=== PATIENT | female | born 1975 | race Caucasian/White ===

== ENCOUNTER → 2017-06-09 | Outpatient (CLI) | payer BC ==
--- NOTE | 2017-06-09 14:06 | DIAGNOSTIC IMAGING REPORT ---
CERVICAL FLEX/EXT CSF HISTORY: 42 years-old Female ARNOLD CHIARI MALFORMATION acute facial, hand and foot numbness COMPARISON: None available TECHNIQUE: Multiplanar multisequence MRI of the cervical spine was obtained without contrast in the neutral, flexion and extension views utilizing CSF flow protocol. FINDINGS: The large [id number] production officer localizer images demonstrate no gross abnormality of the imaged chest, neck, posterior fossa or soft tissues. There is normal flow of CSF through the foramen magnum and cervical spine in neutral positioning, in flexion and also within extension. Mild cerebellar tonsillar ectopia is noted with cerebellar tonsils extending 2.7 mm below the foramen magnum. No mass of the posterior fossa identified. No syrinx of the cervical or imaged thoracic spine. The imaged intracranial structures appear unremarkable. The major flow voids at the level of the skull base appear patent. Mastoid air cells are clear. Mild mucosal thickening of the right sphenoid sinus. Imaged lung apices appear clear. Signal within the cervical spinal cord appears to be within normal limits. Evaluation of the neuroforamen is limited secondary to thick section axial images. C2-C3: Mild uncovertebral spurring without significant central canal or foraminal narrowing. C3-C4: Small broad-based posterior disc bulge with uncovertebral spurring. No significant central canal or foraminal narrowing. C4-C5: Mild uncovertebral spurring causes mild right foraminal stenosis. Left foramen and central canal are patent. C5-C6: Mild intervertebral disc space narrowing with uncovertebral spurring and broad-based posterior disc bulge with mild facet arthrosis causes mild central canal narrowing and mild to moderate biforaminal stenosis. C6-C7: Mild intervertebral disc space narrowing with uncovertebral spurring and mild to moderate facet arthrosis. Right paracentral disc protrusion causes moderate central canal stenosis. There is mild left and moderate right foraminal narrowing. C7-T1: No significant central canal or foraminal narrowing. IMPRESSION: 1. Mild cerebellar tonsillar ectopia without evidence of Chiari I malformation or syrinx. 2. Normal flow of CSF through the foramen magnum and cervical spine. 3. Discogenic degenerative changes and facet arthropathy at C5-C6 and C6-C7 as above. The above report was generated using voice recognition software. It may contain grammatical, syntax or spelling errors. Electronically signed by: Quinn Prescott M.D. 06/09/2017 2:04 PM Dictated Date/Time: 06/09/2017 1:00 PM
== END | disposition home or self-care (01) ==
LOC: C.MRIBC 08:06
PROVIDERS: ATTEND Psychiatry & Neurology Neurology
DX: Q07.00 Arnold-Chiari syndrome without spina bifida or hydrocephalus (principal); M85.88 Other specified disorders of bone density and structure, other site